=== PATIENT | male | born 1975 | race Caucasian/White ===

== ENCOUNTER 2020-02-14 20:18 | Emergency (ER) | payer SELFPAY ==
[~2020-02-14] VITALS: Ht 167.6 cm; Wt 81.6 kg
[2020-02-14 22:04] VITALS: BP 154/87
== END 2020-02-14 22:05 | disposition home or self-care (01) ==
LOC: ED 20:18
DX: R51.9 Headache, unspecified (principal); Z20.828 Contact with and (suspected) exposure to other viral communicable diseases